=== PATIENT | female | born 1955 | race Caucasian/White ===

== ENCOUNTER 2019-06-22 14:24 | Inpatient (IN) ==
[~2019-06-22 14:24] MED LIST: GENTAMICIN IV ONE; NS IV ONE
[2019-06-22] MEDS ORDERED: NORCO-5 PO ONE (16:51)
[2019-06-22] MEDS ORDERED: FENTANYL IV ONE (16:51)
--- NOTE | 2019-06-22 16:59 | Diag Imaging Result Doc PS360 ---
EXAM: CT HEAD W/O CONTRAST INDICATION: cva TECHNIQUE: This exam was performed using automated exposure control, adjustment of mA or kV according to patient size, and/or use of iterative reconstruction technique. COMPARISON: 10/07/2018 FINDINGS: There is patchy low attenuation in the periventricular and subcortical white matter suggesting moderate microangiopathy, stable. There is no definite acute infarct given the limited sensitivity of CT versus MRI. There is no discrete intracranial mass, mass effect, or intracranial hemorrhage. The surrounding soft tissues and bony structures are essentially unremarkable. IMPRESSION: Stable chronic appearing white matter changes. No definite acute intracranial pathology. Electronically signed by Drake Gavin 06/22/2019 4:57 PM
[2019-06-22 17:58] LABS: BASO# 0.03 X1000 (0.0-0.2); BASO% 0.2 % (0.0-0.8); EOS# 0.36 X1000 (0.0-0.7); EOS% 2.6 % (0.0-10.0); HEMATOCRIT 37.5 % (37.0-47.0); HEMOGLOBIN 13.5 g/dL (12.0-16.0); IMM GRAN# 0.04 X1000 (0.0-0.04); IMM GRAN% 0.3 % (0.0-0.5); LYMPH# 3.13 X1000 (1.2-3.4); LYMPH% 22.6 % (20.5-51.1); MCH 31.7 PG (27-31); MONO# 1.15 X1000 (0.11-0.59); MONO% 8.3 % (1.7-9.3); NEUT# 9.14 X1000 (1.4-6.5); PLT 287 X1000 (130-400); RBC 4.26 XMIL (4.2-5.4); RDW 13.1 % (11.5-14.5); WBC 13.85 X1000 (4.8-10.8)
[2019-06-22 18:02] LABS: INR 0.89; PROTIME 12.8 Seconds (11.0-16.0)
[2019-06-22 18:19] LABS: URINE SOURCE CATH
[2019-06-22] MEDS ORDERED: NS 1,000 ML IV ONE (18:22)
[2019-06-22 18:26] LABS: BILIRUBIN URINE NEGATIVE (NEGATIVE); BLOOD URINE LARGE (NEGATIVE); COLOR YELLOW; GLUCOSE URINE NEGATIVE (NEGATIVE); KETONE URINE NEGATIVE (NEGATIVE); LEUKOCYTES URINE LARGE (NEGATIVE); NITRITE URINE NEGATIVE (NEGATIVE); PROTEIN URINE NEGATIVE (NEGATIVE); SP GRAVITY URINE 1.006; TURBIDITY URINE HAZY (CLEAR); UROBILINOGEN URINE NORMAL (NORMAL)
[2019-06-22 18:29] LABS: UR EPITHELIAL CELLS >10 /HPF (<10); URINE BACTERIA NEGATIVE /HPF
[2019-06-22 18:48] LABS: URINE CASTS NONE SEEN
--- NOTE | 2019-06-22 18:48 | PROVIDER DOCUMENTATION ---
This chart was entered by Lilian Gerber Scribe, acting as scribe for Barbi Daniel MD. HPI-Head Injury - General Chief Complaint: Fall Stated Complaint: FALL 2 DAYS AGO HOME/DIZZY Time Seen by Provider: 06/22/19 14:31 Source: patient Allergies/Adverse Reactions: Patient Allergies Allergy/AdvReac Type Severity Reaction Status Date / Time Penicillins Allergy Severe swelling Verified 06/22/19 16:38 and itching aspirin Allergy Mild swelling Verified 06/22/19 16:38 and itching sulfamethoxazole Allergy Mild VOMITING Verified 06/22/19 16:38 [From Bactrim] trimethoprim [From Bactrim] Allergy Mild VOMITING Verified 06/22/19 16:38 meperidine [From Demerol] Allergy SWELLING Verified 06/22/19 16:38 naproxen AdvReac SWELLING Verified 06/22/19 16:38 Home Medications: Home Medication List Medication Instructions Recorded Confirmed Last Taken Type Cyclobenzaprine [Flexeril] 10 mg PO BID 08/04/14 10/06/18 10/06/18 History Hydrocodone/APAP 10 mg/325 mg 1 each PO TID PRN PRN 08/04/14 10/06/18 10/05/18 History [Sheldon-10] Atorvastatin Calcium [Lipitor] 80 mg PO DAILY #0 tablet 08/11/14 10/06/18 10/05/18 Rx Albuterol 2.5MG/Ipratrop 0.5MG 3 ml INH RTTID 10/06/18 10/06/18 Unknown History [Duoneb (A & A)] Furosemide [Lasix] 20 mg PO DAILY 10/06/18 10/06/18 10/06/18 History Ibuprofen [Advil] 200 mg PO DAILY 10/06/18 10/06/18 Unknown History Polyethylene Glycol [Polyox 17 gm PO DIRECTED 10/06/18 10/06/18 10/06/18 History [id number]] Acetaminophen [Tylenol] 650 mg PO Q6H PRN PRN tablet 10/09/18 Unknown Rx Albuterol 2.5MG/Ipratrop 0.5MG 3 ml INH RTTID neb 10/09/18 Unknown Rx [Duoneb (A & A)] Aripiprazole [Abilify] 2 mg PO HS tablet 10/09/18 Unknown Rx Bisacodyl [Dulcolax] 5 mg PO DAILY tablet 10/09/18 Unknown Rx Budesonide/Formoterol Inhaler 1 puff INH RTBID inhaler 10/09/18 Unknown Rx [Symbicort 160/4.5 Microgm Inhaler] Cetirizine [Zyrtec] 10 mg PO DAILY tablet 10/09/18 Unknown Rx Clopidogrel [Plavix] 75 mg PO DAILY tablet 10/09/18 Unknown Rx Clorazepate [Tranxene] 7.5 mg PO DIRECTED tablet 10/09/18 Unknown Rx Docusate Sodium [Colace] 100 mg PO BID capsule 10/09/18 Unknown Rx Gabapentin [Neurontin] 600 mg PO TID@0900,1500,2100 10/09/18 Unknown Rx capsule Ibuprofen [Motrin] 200 mg PO DAILY tablet 10/09/18 Unknown Rx LISINOpril [Prinivil] 10 mg PO DAILY tablet 10/09/18 Unknown Rx Lorazepam [Ativan] 0.5 mg PO BID tablet 10/09/18 Unknown Rx Metoprolol [Lopressor] 50 mg PO BID tablet 10/09/18 Unknown Rx Mirtazapine [Remeron] 30 mg PO DAILY tablet 10/09/18 Unknown Rx Montelukast [Singulair] 10 mg PO DAILY tablet 10/09/18 Unknown Rx Omeprazole [Prilosec] 20 mg PO DAILY@0700 capsule 10/09/18 Unknown Rx Trazodone [Desyrel] 100 mg PO QHS tablet 10/09/18 Unknown Rx - History of Present Illness-Head Injury Nature of Presenting Problem: Patient is a 64 year old female who presents to the ED after having a head injury 2 days ago. States she was getting out of the tub and fell hitting posterior head. Denies LOC. States fatigue, nausea, vomiting, headache and weakness. Head Injury Location: reports: occipital Other injuries associated with incident:: reports: none Quality of Pain: reports: aching Severity: reports: mild Onset/Duration: reports: 2 days ago Timing: reports: still present Method of Injury: reports: fell Any recent trauma/injury?: reports: minor Loss of Consciousness: no loss of consciousness Injury Associated Symptoms: reports: headaches, nausea, vomiting, weakness, other (fatigue) Locality of Occurance: Home Similar Symptoms Previously?: Yes Recently seen or treated by another doctor?: No Review of Systems - Adult - REVIEW OF SYSTEMS - ADULT Constitutional: reports: see HPI, fatique. denies: chills, fever Eyes: reports: no symptoms reported Ears, Nose, Mouth & Throat: reports: no symptoms reported Cardiovascular: reports: no symptoms reported Respiratory: reports: no symptoms reported Gastrointestinal: reports: see HPI, nausea, vomiting. denies: abdominal pain, diarrhea Genitourinary: reports: no symptoms reported Musculoskeletal: reports: see HPI, muscle weakness. denies: back pain, neck pain Integumentary: reports: no symptoms reported Neurological: reports: see HPI, headache/migraines (JONES), other (head injury without LOC). denies: dizziness/vertigo, numbness, seizure Psychiatric: reports: no symptoms reported Endocrine: reports: no symptoms reported Hematologic/Lymphatic: reports: no symptoms reported Allergic/Immunologic: reports: no symptoms reported All Other Systems: Reviewed and Negative Past History - Adult - PAST MEDICAL HISTORY-ADULT Review of Records: reports: Old Records Reviewed, Nursing Assessment Review, Medications Reviewed, Social history reviewed & non-contributory. Major Childhood Illnesses: reports: denies history Cardiovascular: reports: CHF, HTN, hyperlipidemia Respiratory: reports: asthma, COPD Gastrointestinal: reports: GERD Obstetrical/Gynecological: reports: denies history Genitourinary: reports: denies history Musculoskeletal: reports: denies history Neurological: reports: CVA, Seizures/Epilepsy Psychiatric: reports: anxiety, bipolar Endocrine/Immune: reports: Diabetes Other Conditions: reports: denies history - PRIOR SURGERIES/PROCEDURES Surgical/Procedure History: reports: hysterectomy - IMMUNIZATION STATUS Childhood Immunizations: See Nurse Assessment Flu Vaccine: See Nurse Assessment - FAMILY HISTORY Family History: reviewed, not pertinent - SOCIAL HISTORY Smoking: cigarettes (former) Substance Use: denies Physical Exam- Neurological - Physical Exam-Neuro Initial Vital Signs Reviewed: Yes General Appearance: alert, no apparent distress, lethargic. negative: combative Eye Exam: bilateral eye: normal inspection HENMT: other (occipital tenderness and swelling) Head Injury: swelling (occiptial), tenderness (occipital). negative: lacerati ons Neck: non-tender, normal inspection. negative: limited range of motion Respiratory: chest non-tender, lungs clear, normal breath sounds. negative: crackles, stridor Cardiovascular: normal peripheral pulses, regular rate, rhythm. negative: tachycardia, systolic murmur Abdominal Exam: normal bowel sounds, non tender, soft. negative: rebound Extremity: non-tender, normal inspection. 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 negative: facial droop Motor/Sensory: no motor deficit, no sensory deficit, no pronator drift. negative: sensory deficit Neurologic: grossly normal. negative: aphasia, facial droop Integumentary: normal color, normal turgor, warm/dry. negative: ecchymosis, laceration(s), rash Psych/Mental Status: oriented x 3, other (lethargic). negative: anxious Progress - PLAN OF CARE/RESULTS Progress/Plan/Lab Results: Vital Signs - 8 hr 06/22/19 14:28 Temperature 98.0 F Pulse Rate 67 Respiratory Rate 18 Blood Pressure 127/80 O2 Sat by Pulse Oximetry 98 Laboratory Results - last 24 hr 06/22/19 06/22/19 06/22/19 16:28 17:25 17:25 WBC 13.85 H RBC 4.26 Hgb 13.5 Hct 37.5 MCV 88.0 MCH 31.7 H MCHC 36.0 RDW Std Deviation 13.1 Plt Count 287 MPV 10.0 Immature Gran % (Auto) 0.3 Neut % (Auto) 66.0 Lymph % (Auto) 22.6 [place] % (Auto) 8.3 Eos % (Auto) 2.6 Baso % (Auto) 0.2 Immature Gran # (Auto) 0.04 Neut # (Auto) 9.14 H Lymph # (Auto) 3.13 [place] # (Auto) 1.15 H Eos # (Auto) 0.36 Baso # (Auto) 0.03 PT 12.8 INR 0.89 PTT (Actin FS) 30.0 POC Glucose 76 D Urine Source Urine Color Urine Turbidity Urine pH Ur Specific [place] Urine Protein Ur Glucose (Stick) Ur Ketones (Stick) Urine Blood Urine Nitrite Urine Bilirubin Urobilinogen Dipstick Urine Leukocytes Urine WBC (Auto) Urine RBC (Auto) U Epithel Cells (Auto) Urine Bacteria (Auto) 06/22/19 18:10 WBC RBC Hgb Hct MCV MCH MCHC RDW Std Deviation Plt Count MPV Immature Gran % (Auto) Neut % (Auto) Lymph % (Auto) [place] % (Auto) Eos % (Auto) Baso % (Auto) Immature Gran # (Auto) Neut # (Auto) Lymph # (Auto) [place] # (Auto) Eos # (Auto) Baso # (Auto) PT INR PTT (Actin FS) POC Glucose Urine Source CATH Urine Color YELLOW Urine Turbidity HAZY Urine pH 5.0 Ur Specific [place] 1.006 Urine Protein NEGATIVE Ur Glucose (Stick) NEGATIVE Ur Ketones (Stick) NEGATIVE Urine Blood LARGE A Urine Nitrite NEGATIVE Urine Bilirubin NEGATIVE Urobilinogen Dipstick NORMAL Urine Leukocytes LARGE A Urine WBC (Auto) 10-20 A Urine RBC (Auto) 10-20 A U Epithel Cells (Auto) >10 A Urine Bacteria (Auto) NEGATIVE Orders Category Date Time Status Admit - [facility] Routine AdmDCTranf 06/22/19 18:19 Active Nursing [Misc. NRSG Communication Order] DIRECTED Care 06/22/19 18:21 Active Use Oxygen.Protocol ORDERED Care 06/22/19 18:21 Active Z-Document. for Tele Applied ORDERED Care 06/22/19 18:[address] HEAD W/O CONTRAST [CT] Stat Exams 06/22/19 15:17 Completed CBC WITH DIFF [HEME] Stat Lab 06/22/19 17:25 Completed COMPREHENSIVE METABOLIC PANEL [CHEM] Stat Lab 06/22/19 18:13 Ordered PROTIME WITH INR [COAG] Stat Lab 06/22/19 17:25 Completed PTT [COAG] Stat Lab 06/22/19 17:25 Completed URINALYSIS W/POSS RFLX CULT [URINALYSIS] Stat Lab 06/22/19 18:10 Results URINE MANUAL MICROSCOPIC [URINALYSIS] Stat Lab 06/22/19 18:10 Results 0.9% Sodium Chloride Inj [Ns] 1,000 ml Med 06/22/19 18:22 Active IV 999 mls/hr Fentanyl Med 06/22/19 16:51 Discontinued 50 microgm IV NOW ONE Hydrocodone/APAP 5 mg/325 mg [Sheldon-5] Med 06/22/19 16:51 Discontinued 1 each PO NOW ONE Telemetry [OM.EQ] Routine Oth 06/22/19 18:20 Active EKG [EKG] Stat Ther 06/22/19 15:18 Ordered Transfer/Admit Order [TRANSFER] Routine Transfer 06/22/19 18:23 Ordered Result Diagrams: 06/22/19 17:25 - CT/MRI 1 CT Study: Head Impression: See EMR Report ( EXAM: CT HEAD W/O CONTRAST INDICATION: cva TECHNIQUE: This exam was performed using automated exposure control, adjustment of mA or kV according to patient size, and/or use of iterative reconstruction technique. COMPARISON: 10/07/2018 FINDINGS: There is patchy low attenuation in the periventricular and subcortical white matter suggesting moderate microangiopathy, stable. There is no definite acute infarct given the limited sensitivity of CT versus MRI. There is no discrete intracranial mass, mass effect, or intracranial hemorrhage. The surrounding soft tissues and bony structures are essentially unremarkable. IMPRESSION: Stable chronic appearing white matter changes. No definite acute intracranial pathology. Electronically signed by Drake Gavin 06/22/2019 4:57 PM 06/22/191656 Interpreting Physician: Drake Gavin MD Dictated Date/Time: 06/22/191655 cc: Barbi Daniel MD; Sukhwinder Smith MD) - CONSULTS/PCP/HOSPITALIST Notification #1 *Consult/PCP/Hospitalist*: Dr Alexander Time Discussed: 18:23 Consult Disposition: Admit Departure - Departure Date of Disposition Decision: 06/22/19 Time of Disposition Decision: 18:46 DIAGNOSIS: Status post fall, Head concussion Disposition: ADMITTED INPATIENT 09 Certified Medical Emergency: Emergent Condition: Stable Referrals and Follow-Ups: Sukhwinder Smith MD [Primary Care Provider] - - Critical Care Note This patient required my direct & personal management of CC.: No Attestation - Physician/ JESSICA Attestation The physician spent face to face time with patient:: Yes Advanced Practice Provider documentation review:: Supervising physician onsite and consulted in the evaluation and care of this patient. The physician did have a face to face encounter with the patient. This chart was documented by the indicated scribe, (Lilian Gerber Scribe) and accurately reflects the services I performed and decisions made by me, Barbi Daniel MD, as attested by the provider's signature.
[2019-06-22] MEDS ORDERED: GENTAMICIN IV PER PHARMACY MISC SCH (20:45)
[2019-06-22] MEDS ORDERED: VANCOMYCIN IV PER PHARMACY MISC SCH (20:45)
--- NOTE | 2019-06-22 21:54 | Diag Imaging Result Doc PS360 ---
EXAM: CHEST-PORTABLE INDICATION: sob TECHNIQUE: One view COMPARISON: 10/08/2018 FINDINGS: There is suggestion of minimal subsegmental atelectasis at the left lung base. The lungs are grossly clear, otherwise. There is no discrete pleural fluid collection or pneumothorax. The cardiomediastinal silhouette and central vasculature are grossly unremarkable. IMPRESSION: Minimal left basilar subsegmental atelectasis. No definite acute pathology, otherwise. Electronically signed by Drake Gavin 06/22/2019 9:52 PM
[2019-06-22] MEDS ORDERED: VANCOMYCIN 1,700 MG in NS 250 ML IV ONE (22:00)
--- NOTE | 2019-06-22 22:02 | HISTORY AND PHYSICAL ---
Ms. Sanders, 64-year-old white female patient, came because of fall and altered mental status. The patient claims she fell at home on Saturday. After she took a shower patient fell backwards on her head hitting occipital area of the head. The patient denied any loss of consciousness. Since fall according to the patient and family, she was sleeping excessively. She vomited some on Saturday and Saturday. No seizure-type episode. The patient does have some headache, at times blurred vision. The patient was brought to the emergency room. Evaluated by emergency room physician. Her CT scan in the emergency room negative for any acute subdural hematoma or intracerebral bleed. Because of her mental status change, excessive somnolence, posttraumatic headache, we decided to admit the patient for further care. The patient denied any neck stiffness. Complaining of increasing cough, chest congestion, cough productive of yellowish greenish sputum. She did have wheezing at time shortness of breath. The patient does have history suggestive of COPD. The patient used to smoke heavily. Patient is still smoking E- cigarettes. She denied any hemoptysis. Patient does have vague chest pain. More pain with coughing. No radiation of pain into the arm or to the back. No heat or cold intolerance. Denied polyuria, polydipsia. Vague abdominal pain. Her nausea and vomiting stopped. She does have history of constipation. No diarrhea, blood or mucus in the stool. Denied any leg swelling. Complaining of pain in the lower back, both the knees, at times pain in the hip joints, unquantified weight gain. No polyuria or polydipsia. Patient does have a history of depression and mood disorder. The patient is on medication clinically doing better. No further history available at this time. ALLERGIES: Penicillin, aspirin, Bactrim, meperidine. PAST MEDICAL HISTORY: Significant for hypertension, hyperlipidemia, COPD, gastritis and reflux disease, history of anxiety, bipolar disorder. PAST SURGICAL HISTORY: Significant for hysterectomy. FAMILY HISTORY: Noncontributory. PERSONAL HISTORY: Single. Used to smoke cigarettes now smoking E-cigarette. Denied alcohol or substance abuse. Fairly independent in activities of daily living. HOME MEDICATIONS: Includes nebulizer treatment, ibuprofen, Dulcolax, Remeron, trazodone, Abilify, Lipitor, Symbicort, Zyrtec, Plavix, Flexeril, Colace, Lasix, Neurontin, Orange, lisinopril, beta avery, Singulair, Prilosec and MiraLAX. PHYSICAL EXAMINATION: Elderly white female patient in mild distress. VITAL SIGNS: Blood pressure 127/80, pulse 67, respiration 18, temperature 98 degrees. SKIN: Senile turgor. No rash or petechiae. Head atraumatic. Patient does have small hematoma in the occipital area. No pharyngeal congestion. Pupils equally reacting to light. Ears and nose benign. NECK: Supple. No JVD, thyromegaly or lymphadenopathy. CHEST: Bilateral good air entry present. Bibasilar crepitation. Occasional wheezing. CARDIOVASCULAR: S1 and S2 heard. No gallop or thrill. ABDOMEN: Soft, globular. Bowel sounds present. EXTREMITIES: No cyanosis, clubbing. No acute DVT. Peripheral pulsation intact. 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 Able to move all 4 limbs. Patient admitted with fall and head injury. She does have symptoms suggestive of acute bronchitis. She does have underlying COPD, hypertension, chronic pain, constipation, mood disorder. Her urinalysis is suggestive of UTI, had large leukocyte, 10 to 20 WBCs. Electrolytes, blood sugar was 76. PT/INR 0.89. CBC did reveal leukocytosis. PLAN: Admit patient. Neuro check. The patient is allergic to multiple antibiotics. Broad- spectrum antibiotics. Bronchodilator treatment, oxygen, telemetry monitoring. Her CT scan of the head was chronic appearing white matter changes. Overall plan discussed with patient and daughter. They are in agreement. cc: MD MAYE Rob
[2019-06-22 22:21] LABS: ALB/GLOB RATIO 1.2; CALCIUM 9.1 mg/dL (8.8-10.2); CREATININE 1.3 mg/dL (0.5-0.9); POTASSIUM 4.8 mmol/L (3.5-5.1); TOTAL BILIRUBIN 0.41 mg/dL (0.20-1.00); TOTAL PROTEIN 7.3 g/dL (6.3-8.3)
[2019-06-22 22:32] LABS: MAGNESIUM 1.7 mg/dL (1.5-2.7)
[2019-06-22] MEDS: POTASSIUM CHLORIDE 10 MEQ in NS 1,000 ML IV SCH (22:38)
[2019-06-22] MEDS: DUONEB (A & A) INH SCH (23:02)
[2019-06-23] MEDS: ATIVAN PO SCH ×2 (00:28→10:16)
[2019-06-23] MEDS: LOPRESSOR PO SCH ×2 (00:28→10:15)
[2019-06-23] MEDS: ABILIFY PO SCH ×2 (00:28→21:58)
[2019-06-23] MEDS: COLACE PO SCH ×3 (00:28→21:58)
[2019-06-23] MEDS: NORCO-10 PO PRN (00:37)
[2019-06-23] MEDS: FLEXERIL PO SCH ×2 (01:05→10:22)
[2019-06-23] MEDS: NEURONTIN PO SCH ×3 (01:05→16:22)
[2019-06-23] MEDS: DUONEB (A & A) INH SCH ×4 (03:46→21:55)
[2019-06-23 05:42] LABS: HEMATOCRIT 38.5 % (37.0-47.0); HEMOGLOBIN 13.3 g/dL (12.0-16.0); MCH 32.3 PG (27-31); MCHC 34.5 g/dL (33-37); MCV 93.4 FL (81-99); MPV 9.5 FL (7.4-10.4); RBC 4.12 XMIL (4.2-5.4); RDW 13.5 % (11.5-14.5); WBC 11.14 X1000 (4.8-10.8)
[2019-06-23 06:23] LABS: HEMOGLOBIN A1C 6.7 % (4.8-6.0)
[2019-06-23] MEDS: PRILOSEC PO SCH (06:23)
[2019-06-23 06:27] LABS: ESTIMATED GFR 32
[2019-06-23 06:39] LABS: AGAP 14; ALB/GLOB RATIO 1.2; ALKALINE PHOSPHATASE 147 U/L (32-104); BUN 19 mg/dL (8-22); CALCIUM 8.5 mg/dL (8.8-10.2); CHLORIDE 89 mmol/L (98-107); CHOLESTEROL 196 mg/dL (0-200); COSMO 248; CREATININE 1.6 mg/dL (0.5-0.9); GLUCOSE 94 mg/dL (70-104); GOT 22 U/L (10-30); GPT 23 U/L (10-36); HDL 34 mg/dL (45-65); LDL 111 mg/dL; MAGNESIUM 1.7 mg/dL (1.5-2.7); POTASSIUM 5.2 mmol/L (3.5-5.1); SODIUM 122 mmol/L (136-145); TCO2 19 mmol/L (25-35); TOTAL BILIRUBIN 0.67 mg/dL (0.20-1.00); TOTAL PROTEIN 7.4 g/dL (6.3-8.3); TRIGLYCERIDES 255 mg/dL (35-135); VLDL 51 mg/dL
[2019-06-23 09:31] LABS: FREE T4 1.44 ng/dL (0.93-1.70); TSH 6.9 uIUmL (0.27-4.20)
[2019-06-23] MEDS: PLAVIX PO SCH (10:12)
[2019-06-23] MEDS: ZYRTEC PO SCH (10:12)
[2019-06-23] MEDS: LASIX PO SCH (10:13)
[2019-06-23] MEDS: LIPITOR PO SCH (10:15)
[2019-06-23] MEDS: PRINIVIL PO SCH (10:17)
[2019-06-23] MEDS: SINGULAIR PO SCH (10:18)
[2019-06-23] MEDS: SYMBICORT 160/4.5 MICROGM INHALER INH SCH ×2 (10:57→19:55)
--- NOTE | 2019-06-23 11:21 | PROGRESS NOTE ---
DATE: 06/23/2019 SUBJECTIVE: Ms. Sanders was admitted yesterday. She was very drowsy. She fell and hit her head. At present she is still drowsy, however trying to talk. Her lungs are clear. Heart sounds are normal. She answers to the questions appropriately. Urine shows 10 to 20 WBCs and RBCs. She has leukocytosis. She has hyponatremia. CT scan of the head showed some white matter changes. No definite intracranial bleeding. Noted her blood sugar was 81-84. Overall condition is unchanged. She is on IV vancomycin as per pharmacy order. We will continue with the current management on her. Repeat her electrolytes in the morning. cc: MD Tre Cantu MD
[2019-06-23] MEDS: TYLENOL PO PRN ×2 (11:52→21:58)
[2019-06-23] MEDS: POTASSIUM CHLORIDE 10 MEQ in NS 1,000 ML IV SCH (14:04)
[2019-06-24] MEDS: ATIVAN PO SCH ×3 (01:22→21:46)
[2019-06-24] MEDS: NEURONTIN PO SCH ×4 (01:22→21:46)
[2019-06-24] MEDS: LOPRESSOR PO SCH ×3 (01:57→21:47)
[2019-06-24] MEDS: DUONEB (A & A) INH SCH ×4 (03:18→22:03)
[2019-06-24] MEDS: FLEXERIL PO SCH ×3 (06:28→21:47)
[2019-06-24 06:34] LABS: CREATININE 1.6 mg/dL (0.5-0.9); POTASSIUM 4.9 mmol/L (3.5-5.1)
[2019-06-24] MEDS: PRILOSEC PO SCH (07:20)
[2019-06-24] MEDS: MIRALAX PO SCH (08:14)
[2019-06-24] MEDS: LIPITOR PO SCH (08:16)
[2019-06-24] MEDS: PLAVIX PO SCH (08:16)
[2019-06-24] MEDS: ZYRTEC PO SCH (08:16)
[2019-06-24] MEDS: LASIX PO SCH (08:16)
[2019-06-24] MEDS: PRINIVIL PO SCH (08:17)
[2019-06-24] MEDS: SINGULAIR PO SCH (08:17)
[2019-06-24] MEDS: COLACE PO SCH ×2 (08:17→21:47)
--- NOTE | 2019-06-24 09:42 | PROGRESS NOTE ---
DATE: 06/24/2019 Ms. Sanders is doing better. She is more alert today. She wanted the Love catheter out which we did and now she has some retention. We are going to ask Physical Therapy to help her go to bathroom and then she says she would be able to empty her bladder better. We will continue to watch her closely. -5 cc: MD Tre Cantu MD
[2019-06-24] MEDS: SYMBICORT 160/4.5 MICROGM INHALER INH SCH ×2 (11:01→20:03)
[2019-06-24] MEDS: VANCOMYCIN 1,500 MG in NS 250 ML IV SCH (11:12)
[2019-06-24] MEDS: TYLENOL PO PRN (11:15)
[2019-06-24] MEDS: NORCO-10 PO PRN (21:46)
[2019-06-24] MEDS: ABILIFY PO SCH (21:46)
[2019-06-25] MEDS: DUONEB (A & A) INH SCH ×4 (03:37→22:54)
[2019-06-25 06:41] LABS: CREATININE 1.6 mg/dL (0.5-0.9); POTASSIUM 4.7 mmol/L (3.5-5.1)
[2019-06-25] MEDS: PRILOSEC PO SCH (06:51)
[2019-06-25] MEDS: FLEXERIL PO SCH ×2 (08:54→21:57)
[2019-06-25] MEDS: SINGULAIR PO SCH (08:54)
[2019-06-25] MEDS: NEURONTIN PO SCH ×3 (08:54→21:58)
[2019-06-25] MEDS: LIPITOR PO SCH (08:54)
[2019-06-25] MEDS: LOPRESSOR PO SCH ×3 (08:55→21:58)
[2019-06-25] MEDS: ATIVAN PO SCH ×2 (08:55→21:57)
[2019-06-25] MEDS: PLAVIX PO SCH (08:55)
[2019-06-25] MEDS: ZYRTEC PO SCH (08:55)
[2019-06-25] MEDS: LASIX PO SCH (08:55)
[2019-06-25] MEDS: MIRALAX PO SCH (08:55)
[2019-06-25] MEDS: PRINIVIL PO SCH ×2 (08:55→10:32)
[2019-06-25] MEDS: COLACE PO SCH ×2 (08:55→21:58)
[2019-06-25] MEDS: SODIUM CHLORIDE PO SCH ×2 (08:59→21:58)
[2019-06-25] MEDS: SYMBICORT 160/4.5 MICROGM INHALER INH SCH ×2 (09:22→22:54)
--- NOTE | 2019-06-25 09:29 | PROGRESS NOTE ---
DATE: 06/25/2019 Ms. Sanders continues to have electrolyte imbalance. She has sodium of 121. Her lungs are clear. Heart sounds are normal. She is more alert. She is trying to go to the bathroom by herself. She has hyponatremia problem which is giving her some mental confusion. We are going to put her on salt tablets. Overall condition is unchanged. cc: MD Tre Cantu MD
[2019-06-25] MEDS: TYLENOL PO PRN (14:03)
[2019-06-25] MEDS ORDERED: HUMALOG MIX 75/25 SUBQ SCH (21:00)
[2019-06-25] MEDS: HUMALOG SUBQ SCH (21:40)
[2019-06-25] MEDS: ABILIFY PO SCH (21:57)
[2019-06-25] MEDS: GLUCOPHAGE XR PO SCH (21:58)
[2019-06-25] MEDS: HUMALOG MIX 75/25 SUBQ SCH (22:26)
[2019-06-25] MEDS: VANCOMYCIN 1,500 MG in NS 250 ML IV SCH (22:27)
[2019-06-26] MEDS: DUONEB (A & A) INH SCH ×4 (04:00→22:34)
[2019-06-26] MEDS: PRILOSEC PO SCH (06:17)
[2019-06-26] MEDS: HUMALOG SUBQ SCH ×4 (06:41→22:05)
[2019-06-26 07:04] LABS: CREATININE 1.4 mg/dL (0.5-0.9); POTASSIUM 4.6 mmol/L (3.5-5.1)
[2019-06-26] MEDS ORDERED: JANUVIA PO SCH (09:00)
[2019-06-26] MEDS: PLAVIX PO SCH (09:51)
[2019-06-26] MEDS: LOPRESSOR PO SCH ×2 (09:51→22:14)
[2019-06-26] MEDS: FLEXERIL PO SCH ×2 (09:51→22:13)
[2019-06-26] MEDS: GLUCOPHAGE XR PO SCH ×2 (09:52→22:14)
[2019-06-26] MEDS: LIPITOR PO SCH (09:52)
[2019-06-26] MEDS: SINGULAIR PO SCH (09:52)
[2019-06-26] MEDS: LASIX PO SCH (09:52)
[2019-06-26] MEDS: JANUVIA PO SCH (09:52)
[2019-06-26] MEDS: COLACE PO SCH ×2 (09:52→22:14)
[2019-06-26] MEDS: ZYRTEC PO SCH (09:52)
[2019-06-26] MEDS: ATIVAN PO SCH ×2 (09:52→22:13)
[2019-06-26] MEDS: PRINIVIL PO SCH (09:53)
[2019-06-26] MEDS: HUMALOG MIX 75/25 SUBQ SCH ×2 (09:53→22:06)
[2019-06-26] MEDS: NEURONTIN PO SCH ×3 (09:53→22:13)
[2019-06-26] MEDS: MIRALAX PO SCH (09:53)
[2019-06-26] MEDS: SODIUM CHLORIDE PO SCH (09:53)
[2019-06-26] MEDS: SYMBICORT 160/4.5 MICROGM INHALER INH SCH ×2 (10:01→22:37)
--- NOTE | 2019-06-26 12:01 | PROGRESS NOTE ---
DATE: 06/26/2019 SUBJECTIVE: Ms. Sanders is feeling somewhat better. She is still very unsteady when she walks. Blood sugar was 239, and sodium this morning was 126, potassium 4.6, BUN 18, and creatinine 1.4. She needs physical therapy. We are going to continue to watch her salt level. cc: MD Tre Cantu MD
[2019-06-26] MEDS: NORCO-10 PO PRN (22:12)
[2019-06-26] MEDS: ABILIFY PO SCH (22:14)
[2019-06-27] MEDS: SODIUM CHLORIDE PO SCH ×3 (00:37→22:35)
[2019-06-27] MEDS: DUONEB (A & A) INH SCH ×4 (03:44→22:57)
[2019-06-27] MEDS: PRILOSEC PO SCH (06:43)
[2019-06-27 06:57] LABS: CALCIUM 9.1 mg/dL (8.8-10.2); CREATININE 1.3 mg/dL (0.5-0.9); POTASSIUM 4.2 mmol/L (3.5-5.1)
[2019-06-27] MEDS: HUMALOG SUBQ SCH ×4 (07:19→22:38)
[2019-06-27] MEDS: TYLENOL PO PRN (09:17)
[2019-06-27] MEDS: GLUCOPHAGE XR PO SCH ×2 (09:18→22:36)
[2019-06-27] MEDS: ZYRTEC PO SCH (09:18)
[2019-06-27] MEDS: ATIVAN PO SCH ×2 (09:19→22:45)
[2019-06-27] MEDS: JANUVIA PO SCH (09:19)
[2019-06-27] MEDS: LASIX PO SCH (09:19)
[2019-06-27] MEDS: FLEXERIL PO SCH ×2 (09:19→22:35)
[2019-06-27] MEDS: NEURONTIN PO SCH ×3 (09:19→22:35)
[2019-06-27] MEDS: LOPRESSOR PO SCH ×2 (09:19→22:35)
[2019-06-27] MEDS: PRINIVIL PO SCH (09:20)
[2019-06-27] MEDS: LIPITOR PO SCH (09:20)
[2019-06-27] MEDS: SINGULAIR PO SCH (09:20)
[2019-06-27] MEDS: MIRALAX PO SCH ×2 (09:20→09:29)
[2019-06-27] MEDS: COLACE PO SCH ×2 (09:20→22:35)
[2019-06-27] MEDS: PLAVIX PO SCH ×2 (09:20→09:29)
[2019-06-27] MEDS: HUMALOG MIX 75/25 SUBQ SCH ×2 (09:21→22:36)
[2019-06-27] MEDS: SYMBICORT 160/4.5 MICROGM INHALER INH SCH ×2 (09:32→22:56)
[2019-06-27] MEDS: VANCOMYCIN 1,500 MG in NS 250 ML IV SCH (10:04)
--- NOTE | 2019-06-27 11:57 | PROGRESS NOTE ---
DATE: 06/27/2019 SUBJECTIVE: The patient says she still feels weak. She says she takes Lasix because her abdomen swells a little bit. She is on 20 mg of Lasix daily. She comes in with falls and weakness COPD and UTI. She is on vancomycin as her antibiotic. She grew E. coli in her urine which was not tested against vancomycin but she is allergic to most other medications. She also had a very low sodium. Her sodium today was still just 124. Other electrolytes were essentially normal. Chloride slightly low at 86. PHYSICAL EXAMINATION: Blood pressure is 100/65, respirations 20, pulse 66, temperature 97.8 degrees Fahrenheit. HEENT: She is normocephalic. EOMS intact. PERRLA. Throat clear. Lungs: Are clear to auscultation and percussion without rhonchi, rales, or wheezes. Heart: Regular rate and rhythm without murmurs, gallops, friction rubs. Abdomen: Soft. Active bowel sounds. She is obese. She has no organomegaly or tenderness. Neurologic: Exam intact grossly. Says she does not feel well. She had a fall. ASSESSMENT: 1. Altered mental status, improving. 2. Urinary tract infection. 3. Hyponatremia. 4. Mild hypotension. 5. Bronchitis. PLAN: We will stop her Lasix at this time. We will follow her sodium. We will repeat her urinalysis. Please see orders. cc: MD Tre Marin Jr, MD
[2019-06-27] MEDS: ABILIFY PO SCH (22:35)
[2019-06-28] MEDS: DUONEB (A & A) INH SCH ×4 (03:22→22:39)
[2019-06-28] MEDS: PRILOSEC PO SCH (06:53)
[2019-06-28] MEDS: HUMALOG SUBQ SCH ×4 (06:53→21:21)
[2019-06-28 07:38] LABS: CALCIUM 9.3 mg/dL (8.8-10.2); CREATININE 1.4 mg/dL (0.5-0.9); POTASSIUM 4.7 mmol/L (3.5-5.1)
[2019-06-28] MEDS: JANUVIA PO SCH (09:25)
[2019-06-28] MEDS: GLUCOPHAGE XR PO SCH ×3 (09:25→21:21)
[2019-06-28] MEDS: COLACE PO SCH ×3 (09:25→21:22)
[2019-06-28] MEDS: SODIUM CHLORIDE PO SCH ×2 (09:25→21:22)
[2019-06-28] MEDS: NEURONTIN PO SCH ×3 (09:25→21:20)
[2019-06-28] MEDS: LIPITOR PO SCH (09:25)
[2019-06-28] MEDS: ZYRTEC PO SCH (09:25)
[2019-06-28] MEDS: ATIVAN PO SCH ×2 (09:26→21:22)
[2019-06-28] MEDS: PLAVIX PO SCH (09:26)
[2019-06-28] MEDS: PRINIVIL PO SCH (09:26)
[2019-06-28] MEDS: MIRALAX PO SCH (09:26)
[2019-06-28] MEDS: HUMALOG MIX 75/25 SUBQ SCH (09:26)
[2019-06-28] MEDS: LOPRESSOR PO SCH ×2 (09:26→21:21)
[2019-06-28] MEDS: SINGULAIR PO SCH (09:26)
[2019-06-28] MEDS: FLEXERIL PO SCH ×2 (09:26→21:21)
[2019-06-28] MEDS: SYMBICORT 160/4.5 MICROGM INHALER INH SCH ×2 (09:48→22:39)
--- NOTE | 2019-06-28 11:25 | PROGRESS NOTE ---
DATE: 06/28/2019 SUBJECTIVE: The patient says she is starting to feel better. She has got more energy. OBJECTIVE: Vital Signs: Stable with a blood pressure of 112/58, respirations 16, pulse 69, temperature 98.3 degrees Fahrenheit. HEENT: She is normocephalic. EOMs intact. PERRLA. Throat clear. Lungs: Clear to auscultation and percussion without rhonchi, rales, or wheezes. Heart: Regular rate and rhythm without murmurs, gallops, or friction rubs. Abdomen: Soft. Active bowel sounds. No organomegaly or tenderness. Sodium is up to 127. We did stop her Lasix. ASSESSMENT: 1. Altered mental status. 2. Urinary tract infection. 3. Hyponatremia. 4. Mild hypotension, resolved. 5. Bronchitis, resolved. PLAN: We will follow her sodium. Since she has had falls, want to make sure that she is stable. I would like to see her sodium come up a little higher. cc: MD Tre Marin Jr, MD Amit V. Vora, MD
[2019-06-28 13:21] LABS: URINE SOURCE CLEAN CATCH
[2019-06-28 13:27] LABS: BILIRUBIN URINE NEGATIVE (NEGATIVE); BLOOD URINE NEGATIVE (NEGATIVE); COLOR YELLOW; GLUCOSE URINE NEGATIVE (NEGATIVE); KETONE URINE NEGATIVE (NEGATIVE); LEUKOCYTES URINE NEGATIVE (NEGATIVE); NITRITE URINE NEGATIVE (NEGATIVE); PH URINE 5.5; PROTEIN URINE NEGATIVE (NEGATIVE); SP GRAVITY URINE 1.006; TURBIDITY URINE CLEAR (CLEAR); UR EPITHELIAL CELLS <10 /HPF (<10); URINE BACTERIA NEGATIVE /HPF; URINE RBC <10 /HPF (<10); URINE WBC <10 /HPF (<10); UROBILINOGEN URINE NORMAL (NORMAL)
[2019-06-28] MEDS: VANCOMYCIN 1,500 MG in NS 250 ML IV SCH (17:11)
[2019-06-28] MEDS ORDERED: NS 500 ML ONE (17:29)
[2019-06-28] MEDS: TYLENOL PO PRN (19:36)
[2019-06-28] MEDS: ABILIFY PO SCH (21:21)
[2019-06-28] MEDS: NORCO-10 PO PRN (21:22)
[2019-06-29] MEDS: DUONEB (A & A) INH SCH ×2 (04:29→08:16)
[2019-06-29] MEDS: PRILOSEC PO SCH (06:25)
[2019-06-29 06:42] LABS: CALCIUM 8.9 mg/dL (8.8-10.2); CREATININE 1.3 mg/dL (0.5-0.9); POTASSIUM 4.7 mmol/L (3.5-5.1)
[2019-06-29] MEDS: HUMALOG SUBQ SCH (06:56)
[2019-06-29 07:35] VITALS: BP 100/52
[2019-06-29] MEDS: SYMBICORT 160/4.5 MICROGM INHALER INH SCH (08:15)
--- NOTE | 2019-06-29 08:56 | PROGRESS NOTE ---
DATE: 06/29/2019 Ms. Sanders is feeling better. She goes to the bathroom with some help. Her sodium is 128 today. Creatinine is 1.3. Urinalysis is negative. We will discharge her today. cc: MD Tre Cantu MD
[2019-06-29] MEDS: FLEXERIL PO SCH (09:16)
[2019-06-29] MEDS: NEURONTIN PO SCH (09:16)
[2019-06-29] MEDS: SINGULAIR PO SCH (09:16)
[2019-06-29] MEDS: SODIUM CHLORIDE PO SCH (09:16)
[2019-06-29] MEDS: LIPITOR PO SCH (09:16)
[2019-06-29] MEDS: ATIVAN PO SCH (09:16)
[2019-06-29] MEDS: JANUVIA PO SCH (09:16)
[2019-06-29] MEDS: ZYRTEC PO SCH (09:16)
[2019-06-29] MEDS: PLAVIX PO SCH (09:17)
--- NOTE | 2019-06-30 06:56 | DISCHARGE SUMMARY ---
ADMISSION DATE: 06/22/2019 DISCHARGE DATE: 06/29/2019 HISTORY: Ms. Sanders had a fall at home. She was found to be having urinary tract infection and severe hyponatremia. We were not sure if she had hypoglycemia however. Laboratory data in the hospital, CBC showed leukocytosis. The INR was 0.89. Chemistries revealed hyponatremia. Actually, when she came in the sodium was 122, which is very low, and certainly one can pass out or fall with that low of sodium. BUN was 19 and creatinine was 1.3. At that time, liver enzymes were somewhat elevated too especially alkaline phosphatase. Urinalysis revealed 10 to 20 WBCs, and gentamicin and vancomycin levels were therapeutic. She also had urinary tract infection with E. coli. COURSE IN THE HOSPITAL: She was initially treated with vancomycin and gentamicin, and later on we put her on Unasyn. She is doing much better with that. She had hyponatremia which was treated with saline solution, and some challenge. However, salt tablets helped her significantly. She is advised to stop Lasix, and start taking salt tablet. IMPRESSION: 1. History of fall or syncopal episode. 2. Severe hyponatremia with metabolic encephalopathy. 3. UTI. 4. She will be discharged today and will be seen in the office in about 7 days. cc: MD Tre Cantu MD
== END 2019-06-29 09:34 | disposition home or self-care (01) | DRG 640 ==
LOC: ED 14:24 → 4N 19:44
PROVIDERS: ADMIT Internal Medicine; ATTEND Internal Medicine
CPT/HCPCS: 51701; 70450; 71010; 71045; 80048; 80053; 80061; 80170; 80202; 81001; 82140; 82550; 82948; 83036; 83735; 84439; 84443; 84484; 85025; 85027; 85610; 85730; 87077; 87088; 87186; 93005; 94640; 94761; 96374; 97116; 97162; 97530; 99285; A9270; J1580; J1815; J3010; J3370; J3480; J7030; J7040; J7050; P9612; XXXXX